=== PATIENT | male | born 1970 | race African-American/Black ===

== ENCOUNTER 2024-02-14 11:13 | Inpatient (IN) | payer OTHER ==
[2024-02-14 13:14] LABS: HEMATOCRIT 14.2 % (35.4-49); MCHC 29.3 g/dl (32.0-35.9); MEAN CELL VOLUME 56.4 fl (80-96); MEAN PLT VOLUME 7.8 fl (7.5-11.1); PLATELET COUNT 465 10^3/uL (134-434); RBC 2.52 M/mm3 (4.00-5.60); RDW 20.5 % (11.9-15.9); WHITE BLOOD COUNT 6.8 K/mm3 (4.0-10.0)
[2024-02-14 13:20] LABS: INR 1.14 (0.83-1.09); PROTHROMBIN TIME (PATIENT) 12.8 SEC (9.7-13.0)
[2024-02-14 13:21] LABS: MCH 16.5 pg (25.7-33.7)
[2024-02-14 13:23] LABS: ACTIVATED PTT 25.6 SECONDS (25.2-36.5)
[2024-02-14 13:30] LABS: ALBUMIN 3.4 g/dl (3.4-5.0); BLOOD UREA NITROGEN 16.3 mg/dL (7-18); CALCIUM 8.8 mg/dL (8.5-10.1); HEMOGLOBIN 4.2 GM/dL (11.7-16.9)
[2024-02-14 13:33] LABS: CREATININE 1.4 mg/dL (0.55-1.3)
[2024-02-14 13:35] LABS: BILIRUBIN,TOTAL 0.4 mg/dL (0.2-1); TOT PROT 8.2 g/dl (6.4-8.2)
[2024-02-14 13:38] LABS: N-TERMINAL BNP 255.9 pg/ml (5-125)
[2024-02-14] MEDS ORDERED: FUROSEMIDE 40 MG/4 ML INJECTABLE VIAL ONE (16:46)
[2024-02-14 16:54] LABS: RETICULOCYTES 1.34 % (0.5-1.5)
[2024-02-14] MEDS: FUROSEMIDE 40 MG/4 ML INJECTABLE VIAL IVPUSH ONE ×2 (17:04→21:15)
[2024-02-14 19:26] VITALS: BMI 45.7
[2024-02-14] MEDS: IRON SUCROSE INJECTION 200 MG in SODIUM CHLORIDE 100 ML IVPB ONE (20:27)
[2024-02-14] MEDS ORDERED: FLU VACCINE (FLULAVAL) PF 60 MCG/0.5 ML SYRINGE 2023-2024 IM ONE (22:00)
[2024-02-15 04:58] LABS: HEMATOCRIT 18.8 % (35.4-49); MCHC 30.9 g/dl (32.0-35.9); MEAN CELL VOLUME 60.9 fl (80-96); MEAN PLT VOLUME 6.6 fl (7.5-11.1); PLATELET COUNT 441 10^3/uL (134-434); RDW 26.4 % (11.9-15.9); WHITE BLOOD COUNT 5.8 K/mm3 (4.0-10.0)
[2024-02-15 05:00] LABS: MCH 18.8 pg (25.7-33.7)
[2024-02-15 05:04] LABS: HEMOGLOBIN 5.8 GM/dL (11.7-16.9)
[2024-02-15] MEDS: FUROSEMIDE 40 MG/4 ML INJECTABLE VIAL IVPUSH SCH ×2 (05:55→12:07)
[2024-02-15 08:13] LABS: POTASSIUM 3.7 mmol/L (3.5-5.1)
[2024-02-15 08:22] LABS: ALBUMIN 3.4 g/dl (3.4-5.0); BLOOD UREA NITROGEN 12.1 mg/dL (7-18); CALCIUM 8.4 mg/dL (8.5-10.1)
[2024-02-15 08:23] LABS: MAGNESIUM 2.1 mg/dL (1.8-2.4)
[2024-02-15 08:25] LABS: CREATININE 1.2 mg/dL (0.55-1.3); PHOSPHOROUS 3.7 mg/dL (2.5-4.9)
[2024-02-15 08:26] LABS: BILIRUBIN,TOTAL 0.9 mg/dL (0.2-1); TOT PROT 8.2 g/dl (6.4-8.2)
[2024-02-15 08:33] LABS: HEMATOCRIT 19.1 % (35.4-49); MCHC 30.4 g/dl (32.0-35.9); MEAN PLT VOLUME 7.9 fl (7.5-11.1); PLATELET COUNT 432 10^3/uL (134-434); RBC 3.13 M/mm3 (4.00-5.60); RDW 26.2 % (11.9-15.9); WHITE BLOOD COUNT 6.6 K/mm3 (4.0-10.0)
[2024-02-15 08:36] LABS: MCH 18.5 pg (25.7-33.7)
[2024-02-15 11:14] LABS: ANISOCYTOSIS 2+; MACROCYTOSIS 0; TEAR DROP CELLS 1+
[2024-02-15 11:33] LABS: HEMOGLOBIN 5.8 GM/dL (11.7-16.9)
[2024-02-15 18:13] LABS: HEMOGLOBIN 7.4 GM/dL (11.7-16.9); MCHC 32.1 g/dl (32.0-35.9); MEAN CELL VOLUME 65.5 fl (80-96); MEAN PLT VOLUME 7.9 fl (7.5-11.1); PLATELET COUNT 426 10^3/uL (134-434); RBC 3.51 M/mm3 (4.00-5.60); RDW 30.7 % (11.9-15.9); WHITE BLOOD COUNT 8.8 K/mm3 (4.0-10.0)
[2024-02-15] MEDS: PANTOPRAZOLE 40 MG TABLET PO SCH (21:45)
[2024-02-15] MEDS: POLYETHYLENE GLYCOL (HEALTHYLAX) 3350 17 GM PACKET PO SCH (21:45)
[2024-02-16 01:02] LABS: HEMATOCRIT 24.4 % (35.4-49); HEMOGLOBIN 7.8 GM/dL (11.7-16.9); MCH 21.5 pg (25.7-33.7); MEAN CELL VOLUME 67.2 fl (80-96); MEAN PLT VOLUME 8.1 fl (7.5-11.1); PLATELET COUNT 332 10^3/uL (134-434); RBC 3.63 M/mm3 (4.00-5.60); RDW 31.1 % (11.9-15.9); WHITE BLOOD COUNT 8.2 K/mm3 (4.0-10.0)
[2024-02-16 08:16] LABS: HEMATOCRIT 28.7 % (35.4-49); HEMOGLOBIN 8.9 GM/dL (11.7-16.9); MCH 21.2 pg (25.7-33.7); MCHC 31.1 g/dl (32.0-35.9); MEAN CELL VOLUME 68.1 fl (80-96); MEAN PLT VOLUME 7.2 fl (7.5-11.1); PLATELET COUNT 430 10^3/uL (134-434); RBC 4.21 M/mm3 (4.00-5.60); RDW 30.9 % (11.9-15.9); WHITE BLOOD COUNT 9.1 K/mm3 (4.0-10.0)
[2024-02-16 08:28] LABS: POTASSIUM 3.5 mmol/L (3.5-5.1)
[2024-02-16 08:29] LABS: POTASSIUM 3.6 mmol/L (3.5-5.1)
[2024-02-16 08:30] LABS: BLOOD UREA NITROGEN 16.2 mg/dL (7-18); CALCIUM 9.2 mg/dL (8.5-10.1)
[2024-02-16 08:34] LABS: CREATININE 1.4 mg/dL (0.55-1.3)
[2024-02-16 08:38] LABS: MAGNESIUM 2.1 mg/dL (1.8-2.4)
[2024-02-16 08:39] LABS: ALBUMIN 3.5 g/dl (3.4-5.0)
[2024-02-16 08:40] LABS: TOT PROT 8.4 g/dl (6.4-8.2)
[2024-02-16 08:42] LABS: CREATININE 1.4 mg/dL (0.55-1.3)
[2024-02-16 08:43] LABS: PHOSPHOROUS 4.1 mg/dL (2.5-4.9)
[2024-02-16 08:45] LABS: BILIRUBIN,TOTAL 0.9 mg/dL (0.2-1)
[2024-02-16 10:00] LABS: PLATELET ESTIMATE ADEQUATE
[2024-02-17 07:39] LABS: POTASSIUM 3.7 mmol/L (3.5-5.1)
[2024-02-17 07:40] LABS: HEMATOCRIT 26.7 % (35.4-49); HEMOGLOBIN 8.5 GM/dL (11.7-16.9); MCH 21.9 pg (25.7-33.7); MCHC 31.8 g/dl (32.0-35.9); MEAN CELL VOLUME 68.9 fl (80-96); PLATELET COUNT 411 10^3/uL (134-434); RBC 3.87 M/mm3 (4.00-5.60); RDW 31.3 % (11.9-15.9); WHITE BLOOD COUNT 8.4 K/mm3 (4.0-10.0)
[2024-02-17 07:49] LABS: BLOOD UREA NITROGEN 23.5 mg/dL (7-18); CALCIUM 8.8 mg/dL (8.5-10.1)
[2024-02-17 07:53] LABS: CREATININE 1.5 mg/dL (0.55-1.3)
[2024-02-17 09:49] LABS: ANISOCYTOSIS 2+; MACROCYTOSIS 0
[2024-02-17 09:50] LABS: PLATELET ESTIMATE ADEQUATE
[2024-02-17] MEDS: BISACODYL 5 MG TABLET.DR (FP) PO ONE (16:17)
[2024-02-17] MEDS: PEG 3350/NA SULF BICARB CL/KCL 4000 ML SOLN.RECON PO ONE (17:09)
[2024-02-17] MEDS: PANTOPRAZOLE 40 MG TABLET PO SCH (21:21)
[2024-02-17] MEDS: POLYETHYLENE GLYCOL (HEALTHYLAX) 3350 17 GM PACKET PO SCH (21:21)
[2024-02-18 08:29] LABS: BASO % 1.1 % (0-2.0); EOS % 2.7 % (0-4.5); HEMATOCRIT 25.6 % (35.4-49); HEMOGLOBIN 8.4 GM/dL (11.7-16.9); LYMPH % 8.4 % (8-40); MCH 22.5 pg (25.7-33.7); MCHC 32.8 g/dl (32.0-35.9); MEAN CELL VOLUME 68.6 fl (80-96); MONO % 7.3 % (3.8-10.2); NEUT % 80.5 % (42.8-82.8); PLATELET COUNT 330 10^3/uL (134-434); RBC 3.73 M/mm3 (4.00-5.60); WHITE BLOOD COUNT 6.9 K/mm3 (4.0-10.0)
[2024-02-18 08:31] LABS: INR 1.21 (0.83-1.09); PROTHROMBIN TIME (PATIENT) 13.6 SEC (9.7-13.0)
[2024-02-18 08:51] LABS: POTASSIUM 3.4 mmol/L (3.5-5.1)
[2024-02-18 08:58] LABS: CALCIUM 8.4 mg/dL (8.5-10.1)
[2024-02-18 08:59] LABS: BLOOD UREA NITROGEN 17.5 mg/dL (7-18)
[2024-02-18 09:02] LABS: CREATININE 1.3 mg/dL (0.55-1.3)
[2024-02-18] MEDS: PEG 3350/NA SULF BICARB CL/KCL 4000 ML SOLN.RECON PO ONE (10:42)
[2024-02-18] MEDS: FLU VACCINE (FLULAVAL) PF 60 MCG/0.5 ML SYRINGE 2023-2024 IM ONE (11:08)
[2024-02-18] MEDS: POTASSIUM CHLORIDE ORAL LIQUID 20 MEQ/15 ML PO ONE (13:20)
[2024-02-18] MEDS: BISACODYL 5 MG TABLET.DR (FP) PO ONE (20:40)
[2024-02-19 08:01] LABS: HEMOGLOBIN 7.8 GM/dL (11.7-16.9); MCH 21.7 pg (25.7-33.7); MCHC 31.4 g/dl (32.0-35.9); MEAN CELL VOLUME 69.3 fl (80-96); MEAN PLT VOLUME 7.7 fl (7.5-11.1); PLATELET COUNT 331 10^3/uL (134-434); RDW 34.1 % (11.9-15.9); WHITE BLOOD COUNT 6.6 K/mm3 (4.0-10.0)
[2024-02-19 08:27] LABS: POTASSIUM 3.5 mmol/L (3.5-5.1)
[2024-02-19 08:30] LABS: ALBUMIN 3.1 g/dl (3.4-5.0); CALCIUM 8.7 mg/dL (8.5-10.1)
[2024-02-19 08:33] LABS: CREATININE 1.3 mg/dL (0.55-1.3)
[2024-02-19 08:35] LABS: BILIRUBIN,TOTAL 0.9 mg/dL (0.2-1); TOT PROT 7.6 g/dl (6.4-8.2)
[2024-02-19 08:37] LABS: INR 1.22 (0.83-1.09); PROTHROMBIN TIME (PATIENT) 13.7 SEC (9.7-13.0)
[2024-02-19 09:54] LABS: ANISOCYTOSIS 2+; MACROCYTOSIS 1+
[2024-02-19 09:55] LABS: PLATELET ESTIMATE ADEQUATE
[2024-02-19 13:04] VITALS: TEMP 98.7
[2024-02-19 13:41] VITALS: PULSE 83
[2024-02-19 14:18] VITALS: BP 150/90; RESP 18
[2024-02-19] MEDS: IRON SUCROSE INJECTION 200 MG in SODIUM CHLORIDE 100 ML IVPB ONE (16:47)
[2024-02-19] MEDS: LISINOPRIL 10 MG TABLET PO SCH (16:48)
[2024-02-19 20:06] LABS: EPI CELLS 9 /uL (0-25.1); HYALINE CASTS 3 /uL (0-3.1); URINE APPEARANCE CLEAR; URINE BACTERIA 2 /uL (0-1359); URINE BILIRUBIN 1+ (NEGATIVE); URINE COLOR DK YELLOW; URINE GLUCOSE (UA) NEGATIVE (NEGATIVE); URINE KETONE TRACE (NEGATIVE); URINE LEUK ESTERASE NEGATIVE (NEGATIVE); URINE NITRITE NEGATIVE (NEGATIVE); URINE PROTEIN 1+ (NEGATIVE); URINE RBC 11 /uL (0-23.9); URINE WBC 17 /uL (0-25.8)
== END 2024-02-19 19:46 | disposition home or self-care (01) | DRG 253 ==
LOC: JER 11:13 → JERBED 15:37 → J4W 17:32 → J6S 02-17 18:30
PROVIDERS: ADMIT Internal Medicine; ATTEND Internal Medicine
PROC: 30233N1 Transfusion of Nonautologous Red Blood Cells into Peripheral Vein, Percutaneous Approach (ICD-10-PCS; 2024-02-14)
PROC: 0DB98ZX Excision of Duodenum, Via Natural or Artificial Opening Endoscopic, Diagnostic (ICD-10-PCS; 2024-02-19)
PROC: 0DB68ZX Excision of Stomach, Via Natural or Artificial Opening Endoscopic, Diagnostic (ICD-10-PCS; principal; 2024-02-19 12:00)
DX: K92.2 Gastrointestinal hemorrhage, unspecified (principal); Z68.42 Body mass index [BMI] 45.0-49.9, adult; D50.9 Iron deficiency anemia, unspecified; E66.9 Obesity, unspecified; R60.0 Localized edema; K44.9 Diaphragmatic hernia without obstruction or gangrene
CPT/HCPCS: 36415; 36430; 71046-TC-FY; 71275-TC; 80048; 80053; 80061; 81003; 82272; 82728; 83540; 83550; 83735; 83880; 84100; 84436; 84439; 84443; 84466; 84484; 85025; 85027; 85045; 85379; 85610; 85730; 86850; 86900; 86901; 86922; 88305-TC; 88341-TC; 90686; 93005; 93010; 93306-TC; 93970-TC; 99285-25; G0008; J1756; P9038; P9058; Q9967

== ENCOUNTER 2024-04-25 11:52 | Inpatient (IN) | payer OTHER ==
[2024-04-25 12:08] VITALS: BMI 48.1
[2024-04-25 13:28] LABS: BASO % 1.4 % (0-2.0); EOS % 1.4 % (0-4.5); HEMATOCRIT 20.8 % (35.4-49); LYMPH % 14.4 % (8-40); MCH 22.8 pg (25.7-33.7); MCHC 31.2 g/dl (32.0-35.9); MEAN CELL VOLUME 73.2 fl (80-96); MEAN PLT VOLUME 6.3 fl (7.5-11.1); MONO % 5.5 % (3.8-10.2); NEUT % 77.3 % (42.8-82.8); PLATELET COUNT 420 10^3/uL (134-434); RBC 2.84 M/mm3 (4.00-5.60); RDW 24.8 % (11.9-15.9); WHITE BLOOD COUNT 6.3 K/mm3 (4.0-10.0)
[2024-04-25 13:29] LABS: INR 1.06 (0.83-1.09); PROTHROMBIN TIME (PATIENT) 12.2 SEC (9.7-13.0)
[2024-04-25 13:31] LABS: HEMOGLOBIN 6.5 GM/dL (11.7-16.9)
[2024-04-25 13:32] LABS: ACTIVATED PTT 29.3 SECONDS (25.2-36.5)
[2024-04-25 13:52] LABS: CHLORIDE 112 mmol/L (98-107); POTASSIUM 3.7 mmol/L (3.5-5.1); SODIUM 141 mmol/L (136-145)
[2024-04-25 13:54] LABS: CALCIUM 8.1 mg/dL (8.5-10.1)
[2024-04-25 13:55] LABS: ALBUMIN 3.2 g/dl (3.4-5.0); ANION GAP 5 mmol/L (4-13); BLOOD UREA NITROGEN 12.6 mg/dL (7-18); CO2 24 mmol/L (21-32); GLUCOSE,RANDOM 94 mg/dL (74-106); IRON SERUM 49 ug/dL (50-175)
[2024-04-25 13:57] LABS: CREATININE 1.2 mg/dL (0.55-1.3); SGOT/AST 14 U/L (15-37)
[2024-04-25 13:58] LABS: SGPT/ALT 13 U/L (13-61); TOTAL IRON BINDING CAPACITY 305 ug/dL (250-450)
[2024-04-25 13:59] LABS: ANISOCYTOSIS 2+; BILIRUBIN,TOTAL 0.4 mg/dL (0.2-1); MACROCYTOSIS 1+; ROULEAU 1+; TOT PROT 7.9 g/dl (6.4-8.2)
[2024-04-25 14:00] LABS: ALK PHOS 59 U/L (45-117)
[2024-04-25 14:03] LABS: N-TERMINAL BNP 198.5 pg/ml (5-125)
[2024-04-25] MEDS ORDERED: FUROSEMIDE 40 MG/4 ML INJECTABLE VIAL ONE (14:38)
[2024-04-25 16:08] LABS: URINE APPEARANCE CLEAR; URINE BILIRUBIN NEGATIVE (NEGATIVE); URINE COLOR YELLOW; URINE GLUCOSE (UA) NEGATIVE (NEGATIVE); URINE KETONE NEGATIVE (NEGATIVE); URINE LEUK ESTERASE NEGATIVE (NEGATIVE); URINE NITRITE NEGATIVE (NEGATIVE); URINE PROTEIN NEGATIVE (NEGATIVE)
[2024-04-25] MEDS: FUROSEMIDE 40 MG/4 ML INJECTABLE VIAL IVPUSH ONE (16:09)
[2024-04-25 18:46] VITALS: RESP 18
[2024-04-26] MEDS ORDERED: ASCORBIC ACID 500 MG TABLET (FP) PO PRN (09:13)
[2024-04-26] MEDS ORDERED: ACETAMINOPHEN 325 MG TABLET (FP) PO PRN (09:17)
[2024-04-26] MEDS: DOCUSATE SODIUM 100 MG CAPSULE (FP) PO SCH (09:47)
[2024-04-26] MEDS: LISINOPRIL 10 MG TABLET PO SCH (09:48)
[2024-04-26 11:27] LABS: BASO % 0.9 % (0-2.0); EOS % 1.8 % (0-4.5); HEMATOCRIT 26.6 % (35.4-49); HEMOGLOBIN 8.6 GM/dL (11.7-16.9); LYMPH % 7.8 % (8-40); MCH 24.2 pg (25.7-33.7); MCHC 32.2 g/dl (32.0-35.9); MEAN CELL VOLUME 75.3 fl (80-96); MEAN PLT VOLUME 6.6 fl (7.5-11.1); MONO % 4.9 % (3.8-10.2); NEUT % 84.6 % (42.8-82.8); PLATELET COUNT 418 10^3/uL (134-434); RBC 3.54 M/mm3 (4.00-5.60); RDW 23.7 % (11.9-15.9); WHITE BLOOD COUNT 7.3 K/mm3 (4.0-10.0)
[2024-04-26 12:02] LABS: POTASSIUM 3.7 mmol/L (3.5-5.1)
[2024-04-26 12:06] LABS: CALCIUM 8.2 mg/dL (8.5-10.1)
[2024-04-26 12:07] LABS: ALBUMIN 3.1 g/dl (3.4-5.0); BLOOD UREA NITROGEN 10.4 mg/dL (7-18)
[2024-04-26 12:09] LABS: BILIRUBIN,TOTAL 0.8 mg/dL (0.2-1)
[2024-04-26 12:12] LABS: TOT PROT 7.9 g/dl (6.4-8.2)
[2024-04-26] MEDS: FUROSEMIDE 40 MG/4 ML INJECTABLE VIAL IVPUSH ONE (13:13)
[2024-04-26] MEDS: IRON SUCROSE INJECTION 200 MG in SODIUM CHLORIDE 100 ML IVPB ONE (13:16)
[2024-04-26 15:31] VITALS: BP 107/61; PULSE 89; TEMP 99.7
[2024-04-27] MEDS ORDERED: ASCORBIC ACID 500 MG TABLET (FP) PO SCH (10:00)
[2024-04-27] MEDS ORDERED: IRON SUCROSE INJECTION 200 MG in SODIUM CHLORIDE 100 ML IVPB ONE (11:00)
== END 2024-04-26 15:00 | disposition home or self-care (01) | DRG 663 ==
LOC: JER 11:52 → JERBED 14:04 → J6S 18:31 → OBSVTOIN 04-26 09:15
PROVIDERS: ADMIT Internal Medicine; ATTEND Internal Medicine
PROC: 30233N1 Transfusion of Nonautologous Red Blood Cells into Peripheral Vein, Percutaneous Approach (ICD-10-PCS; principal; 2024-04-26)
DX: D50.9 Iron deficiency anemia, unspecified (principal); E87.70 Fluid overload, unspecified; I10 Essential (primary) hypertension; I87.2 Venous insufficiency (chronic) (peripheral); K21.9 Gastro-esophageal reflux disease without esophagitis; R60.0 Localized edema
CPT/HCPCS: 36415; 36430; 71046-TC-FY; 80053; 81003; 82272; 82550; 82553; 83540; 83550; 83735; 83880; 84484; 85025; 85045; 85610; 85730; 86850; 86900; 86901; 86922; 87086; 93005; 93010; 93970-TC; 99285-25; G0378; J1756; P9058